=== PATIENT | female | born 1975 | race Caucasian/White ===

== ENCOUNTER 2018-10-02 13:19 | Emergency (ER) | payer BC ==
[~2018-10-02] VITALS: Ht 167.6 cm; Wt 81.8 kg
[2018-10-02] MEDS ORDERED: OMEP-110 PO (13:35)
--- NOTE | 2018-10-02 13:35 | NUR ---
BIB EMS FROM HOME. PT C/O SUDDEN ONSET OF EPIGASTRIC PAIN RADIATING TO BACK. PAIN 10/10. EMS RPTS = JOCY ARM BP. PAIN INCREASES WITH PALPATION AND INSPIRATION, 1 EPISODE ON EMESIS. PIV EST BY EMS AND ZOFRAN 4MG GIVEN WITH EFFECT. PT NOW PRESENTS WITH PAIN /10 AND DENIES NAUSEA. CALL LIGHT W/I REACH, VSS.
[2018-10-02] MEDS ORDERED: MAALOX/HYOSCYAMINE/LIDOCAINE 45 ML BTL PO ONE (14:30)
[2018-10-02 14:33] LABS: BASOPHILS # (AUTO) 0.04 x10^3/uL (0-0.1); BASOPHILS % (AUTO) 0 % (0-1); EOSINOPHILS # (AUTO) 0.07 x10^3/uL (0-0.4); EOSINOPHILS % (AUTO) 0 % (1-7); LYMPHOCYTES # (AUTO) 1.22 x10^3/uL (1-3.4); LYMPHOCYTES % (AUTO) 7 % (22-44); MD NO; MEAN CORPUSCULAR HEMOGLOBIN 31.8 pg (27.0-34.8); MEAN CORPUSCULAR HGB CONC 33.7 g/dL (32.4-35.8); MEAN CORPUSCULAR VOLUME 94.4 fL (80-100); MEAN PLATELET VOLUME 8.2 fL (7.4-10.4); MONOCYTES # (AUTO) 0.65 x10^3/uL (0.2-0.8); MONOCYTES % (AUTO) 4 % (2-9); NEUTROPHILS # (AUTO) 14.68 x10^3/uL (1.8-6.8); NEUTROPHILS % (AUTO) 88 % (42-75); PLATELET COUNT 300 x10^3/uL (130-400); RED BLOOD COUNT 4.46 x10^6/uL (3.82-5.3); RED CELL DISTRIBUTION WIDTH 13.6 % (9.6-15.2)
[2018-10-02] MEDS ORDERED: MAALOX/HYOSCYAMINE/LIDOCAINE 45 ML BTL ONE (14:36)
--- NOTE | 2018-10-02 14:42 | NUR ---
PT GIVEN GI COCTAIL, C/O SEVERE ABD PAIN AGAIN. NEED UA, PT AWARE BUT DOES NOT HAVE TO GO TO THE BATHROOM RIGHT NOW.
[2018-10-02 14:43] LABS: ALBUMIN 3.8 g/dL (3.4-5.0); ANION GAP 5 mmol/L (5-15); CALCIUM 8.5 mg/dL (8.5-10.1); CHLORIDE 108 mmol/L (98-107)
[2018-10-02 14:49] LABS: ALANINE AMINOTRANSFERASE 49 U/L (12-78); ALKALINE PHOSPHATASE 113 U/L (45-117); BILIRUBIN,TOTAL 0.5 mg/dL (0.2-1.0); CREATININE 0.89 mg/dL (0.55-1.02); TOTAL PROTEIN 7.7 g/dL (6.4-8.2); TROPONIN I < 0.015 ng/mL (0.000-0.045)
[2018-10-02] MEDS ORDERED: PROMETHAZINE 25 MG/ML, 1ML IM ONE (15:00)
--- NOTE | 2018-10-02 15:09 | NUR ---
NOTIFIED OF SEVERE ABD PAIN AFTER MEDICATION, ORDERS RECIEVED
[2018-10-02] MEDS ORDERED: PANTOPRAZOLE 40 MG IV ONE (15:14)
[2018-10-02] MEDS ORDERED: ONDANSETRON 2MG/ML, 2ML ONE (15:14)
[2018-10-02] MEDS ORDERED: MORPHINE SULFATE 4 MG/ML, 1ML ONE (15:14)
--- NOTE | 2018-10-02 15:28 | NUR ---
PT TO CT
[2018-10-02] MEDS ORDERED: ONDANSETRON 2MG/ML, 2ML IVPush ONE (15:30)
[2018-10-02] MEDS ORDERED: MORPHINE SULFATE 4 MG/ML, 1ML IVPush PRN (15:30)
[2018-10-02] MEDS ORDERED: PANTOPRAZOLE 40 MG IV IVPush ONE (15:30)
[2018-10-02] MEDS ORDERED: OMNIPAQUE 350 MG/ML, 100ML BOTTLE ONE (15:45)
--- NOTE | 2018-10-02 17:17 | NUR ---
LATE ENTRY: 1620 - URINE SENT TO LAB, NOT ENOUGH PATIENT STATED SHE DROPPED IT. NOT ENOUGH URINE PER LAB, PT EDUCATED AND GIVEN WATER. WILL TRY AGAIN.
[2018-10-02 17:47] LABS: MICROSCOPIC NOT IND
[2018-10-02 17:52] LABS: CULTURE INDICATED? NO
[2018-10-02 18:03] VITALS: BP 113/67
== END 2018-10-02 18:55 | disposition home or self-care (01) ==
LOC: ED 16:47
DX: K29.00 Acute gastritis without bleeding (principal)
CPT/HCPCS: 36415; 71045; 71275; 80053; 81003; 83690; 84484; 84703; 85025; 93005; 96372; 96374; 96375; 99284; C9113; J2405; J2550; Q9967

== ENCOUNTER 2018-10-04 16:41 | Emergency (ER) | payer BC ==
[~2018-10-04] VITALS: Ht 167.6 cm; Wt 84.0 kg
[~2018-10-04 16:41] MED LIST: OMEP-110 PO
[2018-10-04 17:53] LABS: BASOPHILS # (AUTO) 0.01 x10^3/uL (0-0.1); BASOPHILS % (AUTO) 0 % (0-1); EOSINOPHILS # (AUTO) 0.08 x10^3/uL (0-0.4); EOSINOPHILS % (AUTO) 1 % (1-7); LYMPHOCYTES # (AUTO) 1.41 x10^3/uL (1-3.4); LYMPHOCYTES % (AUTO) 13 % (22-44); MD NO; MEAN CORPUSCULAR HGB CONC 33.4 g/dL (32.4-35.8); MEAN CORPUSCULAR VOLUME 95.7 fL (80-100); MEAN PLATELET VOLUME 8.6 fL (7.4-10.4); MONOCYTES # (AUTO) 0.25 x10^3/uL (0.2-0.8); MONOCYTES % (AUTO) 2 % (2-9); NEUTROPHILS # (AUTO) 9.21 x10^3/uL (1.8-6.8); NEUTROPHILS % (AUTO) 84 % (42-75); PLATELET COUNT 295 x10^3/uL (130-400); RED BLOOD COUNT 4.56 x10^6/uL (3.82-5.3)
[2018-10-04 18:08] LABS: ALANINE AMINOTRANSFERASE 433 U/L (12-78); ALBUMIN 3.9 g/dL (3.4-5.0); ANION GAP 7 mmol/L (5-15); CALCIUM 9.2 mg/dL (8.5-10.1); CHLORIDE 103 mmol/L (98-107); CREATININE 1.08 mg/dL (0.55-1.02)
[2018-10-04 18:13] LABS: ALKALINE PHOSPHATASE 240 U/L (45-117); BILIRUBIN,TOTAL 1.7 mg/dL (0.2-1.0); TOTAL PROTEIN 8.1 g/dL (6.4-8.2); TROPONIN I < 0.015 ng/mL (0.000-0.045)
--- NOTE | 2018-10-04 19:28 | NUR ---
PT REPORT FROM MERNA Hawkins RN; PT CARE TO BE ASSUMED.
[2018-10-04] MEDS ORDERED: SUCR1ORA5 PO (20:09)
[2018-10-04] MEDS ORDERED: LANS30CA PO (20:09)
[2018-10-04] MEDS ORDERED: MULTIVITAMIN (20:09)
[2018-10-04] MEDS ORDERED: ONDANSETRON PO (20:09)
--- NOTE | 2018-10-04 20:09 | NUR ---
TO RADIOLOGY PER ADY
[2018-10-04 20:40] LABS: MICROSCOPIC INDICATED
[2018-10-04 20:41] LABS: CULTURE INDICATED? YES
[2018-10-04 20:45] VITALS: BP 95/50
[2018-10-04] MEDS ORDERED: HYDROcodone/APAP 5/325 TABLET ONE (21:06)
[2018-10-04] MEDS ORDERED: HYDROcodone/APAP 5/325 TABLET PO ONE (21:30)
== END 2018-10-04 21:26 | disposition home or self-care (01) ==
LOC: ED 19:43
DX: K21.9 Gastro-esophageal reflux disease without esophagitis (principal); R94.5 Abnormal results of liver function studies; Z90.49 Acquired absence of other specified parts of digestive tract
CPT/HCPCS: 36415; 71045; 76700; 80053; 80074; 81001; 83690; 84484; 84703; 85025; 87086; 93005; 99284

== ENCOUNTER 2018-10-06 13:54 | Emergency (ER) | payer BC ==
[~2018-10-06] VITALS: Ht 167.6 cm; Wt 84.5 kg
[~2018-10-06 13:54] MED LIST changes: +LANS30CA PO; +MULTIVITAMIN; +ONDANSETRON PO; +SUCR1ORA5 PO
[2018-10-06 15:08] LABS: BASOPHILS # (AUTO) 0.02 x10^3/uL (0-0.1); BASOPHILS % (AUTO) 0 % (0-1); EOSINOPHILS % (AUTO) 1 % (1-7); LYMPHOCYTES # (AUTO) 1.82 x10^3/uL (1-3.4); LYMPHOCYTES % (AUTO) 19 % (22-44); MD NO; MEAN CORPUSCULAR HEMOGLOBIN 32.2 pg (27.0-34.8); MEAN CORPUSCULAR HGB CONC 33.9 g/dL (32.4-35.8); MEAN CORPUSCULAR VOLUME 95.2 fL (80-100); MEAN PLATELET VOLUME 8.3 fL (7.4-10.4); MONOCYTES # (AUTO) 0.65 x10^3/uL (0.2-0.8); MONOCYTES % (AUTO) 7 % (2-9); NEUTROPHILS % (AUTO) 72 % (42-75); PLATELET COUNT 287 x10^3/uL (130-400); RED BLOOD COUNT 4.47 x10^6/uL (3.82-5.3); RED CELL DISTRIBUTION WIDTH 13.9 % (9.6-15.2)
--- NOTE | 2018-10-06 15:14 | NUR ---
WAS TOLD TO COME BACK BY DR. KAPLAN TO REPEAT LIVER FUNCTOIN TESTS TODAY. PT STATES SHE CALLED GI TODAY FOR APPT. NO APPT SCHEDULE YET. PER PT DEPENDING ON RESULTS POSS ADMIT/DO CT SCAN. CLEAR SKIN/SCLERA
[2018-10-06 15:19] LABS: ALBUMIN 3.8 g/dL (3.4-5.0); ANION GAP 6 mmol/L (5-15); CALCIUM 8.6 mg/dL (8.5-10.1); CHLORIDE 105 mmol/L (98-107)
[2018-10-06 15:23] LABS: ALANINE AMINOTRANSFERASE 400 U/L (12-78); ALKALINE PHOSPHATASE 242 U/L (45-117); BILIRUBIN,TOTAL 0.6 mg/dL (0.2-1.0); CREATININE 0.98 mg/dL (0.55-1.02)
[2018-10-06 15:52] VITALS: BP 129/83
== END 2018-10-06 15:57 | disposition home or self-care (01) ==
LOC: ED 15:06
DX: R10.13 Epigastric pain (principal); R74.0 Nonspecific elevation of levels of transaminase and lactic acid dehydrogenase [LDH]; K21.9 Gastro-esophageal reflux disease without esophagitis
CPT/HCPCS: 36415; 80053; 85025; 99283